=== PATIENT | male | born 1975 | race Caucasian/White ===

== ENCOUNTER 2020-12-09 12:50 | Emergency (ER) | payer OTHER ==
--- NOTE | 2020-12-09 14:37 | EDM.PDOC ---
ED HPI GENERAL MEDICAL PROBLEM - General Chief Complaint: ENT Problem Stated Complaint: SWOLLEN/TOOTH PAIN Time Seen by Provider: 12/09/20 14:37 Source of Information: Reports: Patient, RN Notes Reviewed History Limitations: Reports: No Limitations - History of Present Illness INITIAL COMMENTS - FREE TEXT/NARRATIVE: Tavon presents for complaints of acute onset left facial and left upper dental pain for 24 hours. He states the pain was much worse this morning when he woke up. He has tried ice, resting, tylenol, advil with no help. He reports bad teeth. He denies fever, chills, nausea, vomiting, diarrhea, headache or other concerns. - Related Data Allergies Allergy/AdvReac Type Severity Reaction Status Date / Time No Known Allergies Allergy Verified 12/09/20 13:48 Home Meds: Home Meds NK [No Known Home Meds] 12/09/20 [History] Past Medical History - Past Health History Medical/Surgical History: Denies Medical/Surgical History Psychiatric History: Reports: ADHD, Anxiety Social & Family History - Tobacco Use Tobacco Use Status *Q: Current Every Day Tobacco User Years of Tobacco use: 20 Packs/Tins Daily: 0.5 - Caffeine Use Caffeine Use: Reports: Soda - Recreational Drug Use Recreational Drug Use: No ED ROS ENT - Review of Systems Review Of Systems: See Below Constitutional: Reports: No Symptoms HEENT: Reports: Dental Pain. Denies: Ear Discharge, Ear Pain, Eye Discharge, Eye Pain, Nose Pain, Rhinitis, Sinus Problem, Throat Pain, Throat Swelling, Vertigo Respiratory: Reports: No Symptoms Cardiovascular: Reports: No Symptoms Endocrine: Reports: No Symptoms GI/Abdominal: Reports: No Symptoms Musculoskeletal: Reports: No Symptoms Skin: Reports: Erythema (to left cheek, edema) Neurological: Reports: No Symptoms Psychiatric: Reports: No Symptoms Hematologic/Lymphatic: Reports: No Symptoms Immunologic: Reports: No Symptoms ED EXAM, ENT - Physical Exam Exam: See Below Exam Limited By: No Limitations General Appearance: Alert, WD/WN, Mild Distress Eye Exam: Bilateral Eye: EOMI, Normal Inspection, PERRL Ears: Normal External Exam, Normal Canal, Hearing Grossly Normal, Normal TMs. No: Mastoid Swelling, Mastoid Tenderness Nose: Normal Inspection, Normal Mucousa, No Blood. No: Nasal Tenderness Mouth/Throat: Dental Abcess, Dental Pain (left upper, decay to most teeth, edema to #10, 11, 12, 13, 14), Dental Tenderness, Gum Swelling, Lip Swelling (left upper). No: Dry Mucous Membrane, Lip Ulcers, Muffled Voice, Oral Ulcers, Perioral Cyanosis, Peritonsillar Mass, Pharyngeal Erythema, Throat Pain, Throat Swelling, Tongue Swelling, Tonsillar Erythema, Tonsillar Exudates, Tonsillar Swelling, Trismus, Uvular Deviation, Uvular Edema Course - Vital Signs Last Recorded V/S: Last Vital Signs Temp 36.3 C 12/09/20 13:50 Pulse 93 12/09/20 13:50 Resp 12 12/09/20 13:50 BP 178/109 H 12/09/20 13:50 Pulse Ox 98 12/09/20 13:50 - Orders/Labs/Meds Meds: Medications Discontinued Medications Generic Name Dose Route Start Last Admin Trade Name Aruna PRN Reason Stop Dose Admin Acetaminophen 1,000 mg 12/09/20 15:01 12/09/20 15:25 Acetaminophen 500 Mg Tab PO 12/09/20 15:02 1,000 mg ONETIME ONE Administration Clindamycin HCl 300 mg 12/09/20 15:00 12/09/20 15:29 Clindamycin Hcl 150 Mg Cap PO 12/09/20 15:01 300 mg ONETIME ONE Administration Hydromorphone HCl 0.5 mg 12/09/20 15:00 12/09/20 15:25 Hydromorphone 0.5 Mg/0.5 Ml Syringe IM 12/09/20 15:01 0.5 mg ONETIME ONE Administration Ketorolac Tromethamine 30 mg 12/09/20 15:00 12/09/20 15:25 Ketorolac 30 Mg/Ml Sdv IM 12/09/20 15:01 30 mg ONETIME ONE Administration Patient reports improvement of pain. He is advised to follow up with dental as soon as possible. [place] PSYCH COORDINATOR reviewed, no findings for [place] in the past 12 months. Departure - Departure Time of Disposition: 15:40 Disposition: Home, Self-Care 01 Condition: Good Clinical Impression: Dental abscess - Discharge Information *PRESCRIPTION DRUG MONITORING PROGRAM REVIEWED*: Yes *COPY OF PRESCRIPTION DRUG MONITORING REPORT IN PATIENT MARTIN: No Instructions: Dental Abscess, [id number] Referrals: PCP,None [Primary Care Provider] - Forms: ED Department Discharge Additional Instructions: You have been evaluated and treated for left upper dental infection/abscess. You were given toradol 30mg IM for pain as well additional pain medication and oral antibiotic. At home you can take: Naproxen (aleve) 500mg by mouth twice per day for pain. Tylenol (acetaminophen) 100mg by mouth twice per day for pain. Take clindamycin 300mg by mouth every 6 hours for infection for 10 days. Follow up with a dentist within the next 7 to 10 days for treatment. Return to the emergency room for any worsening, issues or concerns. Sepsis Event Note (ED) - Evaluation Sepsis Screening Result: No Definite Risk - Focused Exam Vital Signs: Vital Signs Temp Pulse Resp BP Pulse Ox 12/09/20 13:50 36.3 C 93 12 178/109 H 98 12/09/20 13:36 36.3 C 93 12 178/109 H 98 - Assessment/Plan Assessment:: Dental abscess Plan: Patient evaluated and treated for left upper dental infection/abscess. He was given toradol 30mg IM for pain as well additional pain medication and oral antibiotic. At home take: Naproxen (aleve) 500mg by mouth twice per day for pain. Tylenol (acetaminophen) 100mg by mouth twice per day for pain. Take clindamycin 300mg by mouth every 6 hours for infection for 10 days. Follow up with a dentist within the next 7 to 10 days for treatment. Return to the emergency room for any worsening, issues or concerns.
[2020-12-09] MEDS ORDERED: Clindamycin HCl 150 MG Cap PO ONE (15:00)
[2020-12-09] MEDS ORDERED: Ketorolac 30 MG/ML SDV IM ONE (15:00)
[2020-12-09] MEDS ORDERED: HYDROmorphone 0.5 MG/0.5 ML Syringe IM ONE (15:00)
[2020-12-09] MEDS ORDERED: Acetaminophen 500 MG Tab PO ONE (15:01)
== END 2020-12-09 15:30 | disposition home or self-care (01) ==
LOC: JP.ED 12:50
DX: K04.7 Periapical abscess without sinus (principal); Z72.0 Tobacco use
CPT/HCPCS: 96372; 99283; A9270-GY; J1170; J1885

== ENCOUNTER 2021-01-04 17:33 | Emergency (ER) | payer OTHER ==
[2021-01-04] MEDS ORDERED: Bacitracin Oint 1 GM U/D Packet TOP ONE (17:54)
[2021-01-04] MEDS ORDERED: Diphtheria,Pertussis(Acell),Tetanus Vaccine 0.5 ML Syringe IM ONE (18:01)
--- NOTE | 2021-01-04 18:16 | EDM.PDOC ---
ED HPI GENERAL MEDICAL PROBLEM - General Chief Complaint: Laceration Stated Complaint: CUT LEFT THUMB Time Seen by Provider: 01/04/21 18:00 Source of Information: Reports: Patient History Limitations: Reports: No Limitations - History of Present Illness INITIAL COMMENTS - FREE TEXT/NARRATIVE: 45-year-old male with a laceration of his left thumb. He struck the dorsal aspect of his thumb with a sharp piece of sheet metal sustaining a 3 cm transverse laceration just distal to the MP joint on the dorsal aspect of the thumb. He has full range of motion, no distal numbness. His tetanus is not up-to-date. Onset: Sudden Duration: Hour(s): (Within the last hour) Location: Reports: Upper Extremity, Left Associated Symptoms: Reports: No Other Symptoms Left Finger-Thumb Pain Score (Numeric/FACES): 7 - Related Data Allergies Allergy/AdvReac Type Severity Reaction Status Date / Time No Known Allergies Allergy Verified 01/04/21 17:58 Home Meds: Home Meds NK [No Known Home Meds] 12/09/20 [History] Past Medical History - Past Health History Medical/Surgical History: Denies Medical/Surgical History Psychiatric History: Reports: ADHD, Anxiety Social & Family History - Tobacco Use Tobacco Use Status *Q: Light Tobacco User Years of Tobacco use: 20 Packs/Tins Daily: 0.5 - Caffeine Use Caffeine Use: Reports: Soda, Tea - Recreational Drug Use Recreational Drug Use: No ED ROS GENERAL - Review of Systems Review Of Systems: See Below Constitutional: Denies: Fever, Chills HEENT: Reports: Other (Recent dental infection) Respiratory: Denies: Shortness of Breath GI/Abdominal: Reports: No Symptoms Neurological: Denies: Paresthesia ED EXAM, SKIN/RASH Exam: See Below Exam Limited By: No Limitations General Appearance: Alert, No Apparent Distress, Anxious Head: Atraumatic Respiratory/Chest: No Respiratory Distress, Lungs Clear Cardiovascular: Regular Rate, Rhythm Extremities: Other (Exam is otherwise limited to the left hand. Patient has a 3 cm diagonal laceration over the dorsal aspect of the thumb distal to the MP joint. He has normal extension strength and no distal paresthesia. Bleeding is controlled.) Neurological: Alert, Oriented Psychiatric: Anxious Course - Vital Signs Last Recorded V/S: Last Vital Signs Temp 97.7 F 01/04/21 17:57 Pulse 91 01/04/21 17:57 Resp 17 01/04/21 17:57 BP 158/109 H 01/04/21 17:57 Pulse Ox 98 01/04/21 17:57 - Orders/Labs/Meds Meds: Medications Discontinued Medications Generic Name Dose Route Start Last Admin Trade Name Aruna PRN Reason Stop Dose Admin Bacitracin 1 dose 01/04/21 17:54 01/04/21 18:05 Bacitracin Oint 1 Gm U/D Packet TOP 01/04/21 17:55 1 dose ONETIME ONE Administration Diphtheria/Tetanus/Acell Pertussis 0.5 ml 01/04/21 18:01 01/04/21 18:05 Diphtheria,Pertussis(Acell),Tetanus Vaccine 0.5 Ml Syringe IM 01/04/21 18:02 0.5 ml .ONCE ONE Administration Lidocaine HCl 5 ml 01/04/21 17:54 01/04/21 18:05 Lidocaine 1% 5 Ml Sdv INJECT 01/04/21 17:55 5 ml ONETIME ONE Administration - Re-Assessments/Exams Free Text/Narrative Re-Assessment/Exam: 01/04/21 18:15 Area was anesthetized with 1% lidocaine, flushed thoroughly with saline and four 4-0 Ethilon sutures were used to close the wound. Topical bacitracin was applied and he was given a Tdap booster. Sutures can be removed in 8 days. Departure - Departure Time of Disposition: 18:42 Disposition: Home, Self-Care 01 Clinical Impression: Laceration of left hand Qualifiers: Encounter type: initial encounter Foreign body presence: without foreign body Qualified Code(s): S61.412A - Laceration without foreign body of left hand, initial encounter - Discharge Information Instructions: Laceration Care, Adult, [id number] Referrals: PCP,None [Primary Care Provider] - Forms: ED Department Discharge Care Plan Goals: Keep wound covered and clean while healing, increase activity as tolerated and remove stitches in 8 days. Recheck sooner if concerns of infection or not healing satisfactorily. Sepsis Event Note (ED) - Evaluation Sepsis Screening Result: No Definite Risk - Focused Exam Vital Signs: Vital Signs Temp Pulse Resp BP Pulse Ox 01/04/21 17:57 97.7 F 91 17 158/109 H 98 01/04/21 17:55 97.7 F 91 17 158/109 H 98
== END 2021-01-04 18:42 | disposition home or self-care (01) ==
LOC: JP.ED 17:33
DX: S61.412A Laceration without foreign body of left hand, initial encounter (principal); Z23 Encounter for immunization; Z72.0 Tobacco use; W26.8XXA Contact with other sharp object(s), not elsewhere classified, initial encounter
CPT/HCPCS: 12002; 90471; 90715; 99282-25